=== PATIENT | female | born 1960 | race Caucasian/White ===

== ENCOUNTER 2016-04-17 15:47 | Emergency (ER) | payer OTHER ==
[2016-04-17 15:52] VITALS: TEMP 98.4; O2SAT 97
[2016-04-17] MEDS ORDERED: ASPIRIN 81 MG CHEWABLE TAB PO ONE (15:57)
[2016-04-17] MEDS ORDERED: NITROGLYCERIN 0.4 MG BTL SL PRN (15:57)
[2016-04-17 16:25] LABS: % IMMATURE GRANULYOCYTES 0.2 % (0.0-1.1); ABSOLUTE IMMATURE GRANULOCYTES 0.01 10^3/uL (0.00-0.10); ADD DIFF? NO; ADD MORPH? NO; ADD SCAN? NO; ATYPICAL LYMPHOCYTE FLAG 0 (0-99); FRAGMENT RBC FLAG 0 (0-99); HEMATOCRIT 33.7 % (38.0-47.0); HEMOGLOBIN 11.5 g/dL (12.6-16.3); LEFT SHIFT FLG 0 (0-99); LIPEMIA HEMOLYSIS FLAG 90 (0-99); MEAN CELL HEMOGLOBIN 28.8 pg (27.9-34.1); MEAN CELL HEMOGLOBIN CONCENTR. 34.1 g/dL (32.4-36.7); MEAN CELL VOLUME 84.5 fL (81.5-99.8); MEAN PLATELET VOLUME 9.1 fL (8.7-11.7); PLATELET CLUMPS FLAG 10 (0-99); PLATELET COUNT 402 10^3/uL (150-400); RED BLOOD CELL COUNT 3.99 10^6/uL (4.18-5.33); RED CELL DISTRIBUTION WIDTH 15.2 % (11.5-15.2)
--- NOTE | 2016-04-17 16:29 | CPEKG ---
Heart Rate: 66 RR Interval: 909 P-R Interval: 168 QRSD Interval: 92 QT Interval: 408 QTC Interval: 428 P [place]: 31 QRS [place]: 13 T Wave [place]: 45 EKG Severity - NORMAL ECG - EKG Impression: SINUS RHYTHM Electronically Signed By: Vicente Currie 17-Apr-2016 16:32:28
--- NOTE | 2016-04-17 16:30 | EDPHY ---
H & P Time Seen by Provider: 04/17/16 15:56 HPI/ROS: HPI Palpitations, chest tightness. 55-year-old female by private vehicle. Patient has a history of breast cancer and bilateral mastectomy. She states that for the last week she has had intermittent episodes of palpitations which she describes as her heart racing and during these palpitations she has a chest discomfort described as a tightness in her mid substernal area. She was going to see her primary care physician about this complaint was advised to come to the emergency department instead. She has not had any associated shortness of breath. ROS: Constitutional: No fever, no chills. No weakness. Eyes: No discharge. No changes in vision. ENT: No sore throat. No nasal congestion or rhinorrhea. Respiratory: No cough. No shortness of breath. Cardiac: No chest pain, no palpitations. Gastrointestinal: No abdominal pain, no vomiting, no diarrhea. Genitourinary: No hematuria. No dysuria or increased frequency with urination. Musculoskeletal: No back pain. No neck pain. No myalgias or arthralgias. Skin: No rashes. Neurological: No headache. No focal weakness or altered sensation. Past medical history: As above. She has a malpositioned left-sided breast implant which causes her some lower left substernal pain intermittently. She is going to have this removed and replaced in the near future. No cardiac risk factors. Family history: Thyroid problems. No cardiac history. Social history: Nonsmoker. Here by herself. Physical Exam: General Appearance: Alert, no distress. This patient is responding to questions appropriately and in full sentences. This patient appears well- hydrated and well-nourished. Eyes: Pupils equal and round no pallor or injection. No lid edema, erythema or injection. Respiratory: There are no retractions, lungs are clear to auscultation with good air movement bilaterally. Cardiovascular: Regular rate and rhythm. No murmur. Gastrointestinal: Abdomen is soft and nontender, no masses, bowel sounds normal. No focal tenderness at McBurney's point. No Gonzalez sign. Neurological: Motor sensory function is grossly intact. Cranial nerves are normal. Gait is normal. Skin: Warm and dry, no rashes. Musculoskeletal: Neck is supple and nontender. Extremities are symmetrical. All joints range without pain or impingement. Psychiatric: No agitation. No depression. Database: EKG: EKG time is 4:27 p.m.; EKG shows a narrow complex normal sinus rhythm with a ventricular rate of 66. The TX, QRS, QT intervals are within normal limits. There are no ST-T wave changes indicative of ischemic or injury pattern. No evidence of right heart strain. No evidence of WPW, Brugada syndrome, hypertrophic cardiomyopathy. Interpreted by me. Imaging: Chest x-ray AP portable; the cardiac mediastinal silhouette is unremarkable. No evidence of infiltrate or pneumothorax. No acute cardiopulmonary disease process noted. Interpreted by me. Procedures: Emergency department course: IV placed. She was placed on a monitor. She is currently not having any pain. She was given 324 mg of chewed aspirin. Her vital signs have been reviewed. She is hypertensive. She reports that she has had issues with hypertension in the past but is not currently medicated. 5:25 p.m., patient re-evaluated. Resting comfortably at this time. Vital signs reviewed. Blood pressure currently 190/93. Her heart rate has been in the mid 60s to low 70s, narrow complex sinus rhythm on the monitor since she has been here. She has had no chest discomfort or palpitations. Her blood work was discussed with her. We are still waiting on her thyroid study. I discussed admission with her. She does not want to be admitted. I feel it is reasonable for her to be discharged with follow-up with Cardiology for provocative testing and evaluation of her hypertension as well as further evaluation of possible arrhythmia by Holter monitor or some other device. She is in agreement with this plan. 5:40 p.m., patient re-evaluated. Again resting comfortably. Again she is asymptomatic. Her blood pressure remains high at 190 3/95. I discussed starting her on an antihypertensive. She has normal renal function. She was given 10 mg of oral lisinopril in the emergency department. I will write her a limited prescription for this medication. In addition to above she is to discuss management of her blood pressure with Cardiology when she sees them on close follow-up. Return to emergency department precautions were thoroughly reviewed with her. She does not want to be admitted at this time. She was discharged in good condition. She understands for follow-up. Differential Diagnosis: Her presentation is not consistent with acute coronary syndrome, pulmonary embolism, aortic dissection, hypertensive emergency. The differential diagnosis on this patient includes but is not limited to anxiety with associated sinus tachycardia, intermittent atrial fibrillation, SVT, uncontrolled hypertension. This represents a partial list of diagnoses considered. These considerations are based on history, physical exam, past history, reassessment and diagnostic testing. Smoking Status: Never smoked Constitutional: Initial Vital Signs Temperature (C) 36.9 C 04/17/16 15:50 Heart Rate 81 04/17/16 15:50 Respiratory Rate 16 04/17/16 15:50 Blood Pressure 216/125 H 04/17/16 15:50 O2 Sat (%) 97 04/17/16 15:50 O2 Delivery Mode Room Air Allergies/Adverse Reactions: Latex, Natural Rubber Allergy (Verified 04/17/16 15:52) Home Medications: Medication Instructions Recorded Amoxicillin/Clavulanate Pot 875 mg PO BID 10 Days 01/22/15 [Augmentin 875 MG TAB (RX)] Flonase Allergy Relief 06/07/15 Singulair 06/07/15 Lisinopril [Zestril 10 mg (*)] 10 mg PO DAILY #10 tab 04/17/16 Medical Decision Making - Data Points Laboratory Results: Laboratory Results 04/17/16 15:55 04/17/16 15:55 04/17/16 04/17/16 16:15 15:55 WBC 6.60 10^3/uL (3.80-9.50) RBC 3.99 L 10^6/uL (4.18-5.33) Hgb 11.5 L g/dL (12.6-16.3) Hct 33.7 L % (38.0-47.0) MCV 84.5 fL (81.5-99.8) MCH 28.8 pg (27.9-34.1) MCHC 34.1 g/dL (32.4-36.7) RDW 15.2 % (11.5-15.2) Plt Count 402 H 10^3/uL (150-400) MPV 9.1 fL (8.7-11.7) Neut % (Auto) 61.4 % (39.3-74.2) Lymph % (Auto) 29.1 % (15.0-45.0) [place] % (Auto) 7.0 % (4.5-13.0) Eos % (Auto) 1.1 % (0.6-7.6) Baso % (Auto) 1.2 % (0.3-1.7) Nucleat RBC Rel Count 0.0 % (0.0-0.2) Absolute Neuts (auto) 4.06 10^3/uL (1.70-6.50) Absolute Lymphs (auto) 1.92 10^3/uL (1.00-3.00) Absolute Monos (auto) 0.46 10^3/uL (0.30-0.80) Absolute Eos (auto) 0.07 10^3/uL (0.03-0.40) Absolute Basos (auto) 0.08 10^3/uL (0.02-0.10) Absolute Nucleated RBC 0.00 10^3/uL (0-0.01) Immature Gran % 0.2 % (0.0-1.1) Immature Gran # 0.01 10^3/uL (0.00-0.10) PT 13.7 SEC (12.0-15.0) INR 1.06 (0.83-1.16) APTT 27.0 SEC (23.0-38.0) Sodium 142 mEq/L (134-144) Potassium 4.0 mEq/L (3.5-5.2) Chloride 107 mEq/L (97-110) Carbon Dioxide 23 mEq/l (22-31) Anion Gap 12 mEq/L (8-16) BUN 9 mg/dL (7-23) Creatinine 0.7 mg/dL (0.6-1.0) Estimated GFR > 60 Glucose 82 mg/dL (70-100) Calcium 9.5 mg/dL (8.5-10.4) Troponin I < 0.012 ng/mL (0-0.034) TSH 3.140 uIU/mL (0.465-4.680) Medications Given: Discontinued Medications Aspirin (Aspirin) 324 mg PO EDNOW ONE Stop: 04/17/16 15:58 Last Admin: 04/17/16 16:38 Dose: 324 mg Departure - Departure Disposition: Home, Routine, Self-Care Clinical Impression: Palpitations, Chest discomfort, Hypertension Condition: Good Instructions: Palpitations (ED) Additional Instructions: Read and follow provided instructions. Take blood pressure medication as prescribed only. Follow-up with Cardiology within the next 1-2 days for stress test as discussed. Call the offices of [facility] Dr. Cam Waterman or 1 of his partners to schedule appointment at 8:30 a.m. tomorrow morning. This needs to be done by Friday afternoon. Also, explain that you have had these palpitations and that you need a monitoring device to further evaluate the cause of your palpitations. As I discussed with you I also wanted to talk to them about your elevated blood pressure and whether not to continue on the lisinopril which I prescribed you in the emergency department. Return to the emergency department immediately for worsening or prolonged palpitations, chest pain, shortness of breath or other serious concerns. No strenuous activity until cleared by Cardiology. Referrals: Cam Waterman MD [Medical Doctor] - As per Instructions Prescriptions: Lisinopril [Zestril 10 mg (*)] 10 mg PO DAILY #10 tab
[2016-04-17 16:51] LABS: ANION GAP 12 mEq/L (8-16); CALCIUM 9.5 mg/dL (8.5-10.4); CARBON DIOXIDE 23 mEq/l (22-31); CHLORIDE 107 mEq/L (97-110); CREATININE 0.7 mg/dL (0.6-1.0); GLOMERULAR FILTRATION RATE > 60; GLUCOSE 82 mg/dL (70-100); SODIUM 142 mEq/L (134-144)
[2016-04-17 17:01] LABS: TROPONIN I < 0.012 ng/mL (0-0.034)
--- NOTE | 2016-04-17 17:05 | DX ---
Portable Chest at 1604 hours History: Chest pain, arrhythmia. Comparison: None available. Findings: The lungs are clear. The heart and pulmonary vasculature are normal. Right axillary surgica l clips are present with clips overlying the right chest. Bilateral implants are noted. Mild leftward curvature of the lower thoracic spine is present. Impression: No acute findings in the chest
[2016-04-17 17:09] LABS: INR 1.06 (0.83-1.16); PROTIME(PATIENT) 13.7 SEC (12.0-15.0)
[2016-04-17] MEDS ORDERED: LISINOPRIL 20 MG TAB PO ONE (17:49)
[2016-04-17 18:06] VITALS: BP 170/96; PULSE 67; RESP 20
== END 2016-04-17 18:07 | disposition home or self-care (01) ==
DX: R07.89 Other chest pain (principal); R00.2 Palpitations; I10 Essential (primary) hypertension; Z91.040 Latex allergy status

== ENCOUNTER → 2017-05-06 | Emergency (ER) | payer BC ==
[2017-05-06 17:31] VITALS: RESP 18; TEMP 98
--- NOTE | 2017-05-06 18:32 | EDPHY ---
H & P Time Seen by Provider: 05/06/17 17:29 HPI/ROS: This patient injured her right 5th toe 4 days prior to arrival when she abruptly change the course of her ft trajectory while stepping to avoid stepping on her small dog. She slammed foot up against a piece of furniture in the process and reports immediate pain to the 5th toe with associated ecchymosis and swelling. She reports the pain is moderate baseline but worsens with flexion of the toe when she is walking. She notes no other exacerbating factors. Given her ongoing symptoms, she came in for evaluation tonight to arrived by private vehicle. ROS: She reports some associated pain up the 5th metatarsal. No other musculoskeletal complaints Neuro: No numbness or tingling Integumentary: No lacerations or abrasions 5 point ROS is otherwise negative. Past Medical/Surgical History: Otherwise healthy Smoking Status: Never smoked Physical Exam: Physical Exam Vital signs are normal. General: No acute distress Eyes: Pupils equal and react to light. Extraocular motions are intact. Lungs: No respiratory distress. Cardiac: Brisk capillary refill is intact throughout. Pulses are 2+ and symmetric in the affected extremity. Skin: No rash or pallor. Musculoskeletal: Atraumatic normal except for right foot Right foot: Patient has moderate 5th toe swelling ecchymosis and tenderness. Minimal distal 5th metatarsal tenderness is present. No other abnormalities on exam parent Neuro: Alert and oriented x3 with no sensorimotor deficits in the affected extremity. Initial differential diagnosis: Toe fracture, toe sprain, traumatic hematoma Constitutional: Initial Vital Signs Temperature (C) 36.6 C 05/06/17 17:29 Heart Rate 78 05/06/17 17:29 Respiratory Rate 18 05/06/17 17:29 Blood Pressure 162/60 H 05/06/17 17:29 O2 Sat (%) 97 05/06/17 17:29 O2 Delivery Mode Room Air Allergies/Adverse Reactions: Latex, Natural Rubber Allergy (Verified 04/17/16 15:52) Home Medications: Medication Instructions Recorded Acyclovir 05/06/17 MDM/Departure - MDM Diagnostics: Toe x-ray: Positive proximal phalanx fracture of the 5th toe minimally displaced Imaging Results: Imaging Impressions Foot X-Ray 05/06/17 17:35 Impression: Acute/subacute intra-articular fracture involving the base of the fifth proximal phalanx. Imaging: I viewed and interpreted images myself ED Course/Re-evaluation: SPLINTING: Patient's 5th toe was yusra-taped 4th toe by our tech with my supervision. She is also placed in a postop shoe. Patient is neurovascularly intact post splint application. DISCUSSION: PATIENT WITH TOE FRACTURE NEUROVASCULAR INTACT WITHOUT EVIDENCE OF OTHER SIGNIFICANT INJURIES. - Depart Disposition: Home, Routine, Self-Care Clinical Impression: Toe fracture, right Qualifiers: Encounter type: initial encounter Toe: lesser toe Fracture type: closed Phalanx : middle Fracture alignment: displaced Qualified Code(s): S92.521A - Displaced fracture of middle phalanx of right lesser toe(s), initial encounter for closed fracture Condition: Good Instructions: Toe Fracture (ED) Additional Instructions: Diagnosis: 5th toe fracture Plan: Yusra taped toes Postop shoe when your up and about Cane or crutches if needed for comfort Call Dr. Gonzalez-aircraft electrical systems specialist to arrange for follow-up for further evaluation. Referrals: QUETA BUNDY [Primary Care Provider] - As per Instructions Marta Gonzalez [Doctor of Podiatric Medicine] - As per Instructions
[2017-05-06 18:53] VITALS: BP 137/62; PULSE 85; O2SAT 96
== END | disposition home or self-care (01) ==
LOC: CED 17:17
DX: S92.521A Displaced fracture of middle phalanx of right lesser toe(s), initial encounter for closed fracture (principal); W23.1XXA Caught, crushed, jammed, or pinched between stationary objects, initial encounter
CPT/HCPCS: 73630-PO; L4386

== ENCOUNTER → 2018-08-27 | Outpatient (CLI) | payer BC | LOC: FIMAGING 12:29 ==